=== PATIENT | female | born 1995 | race Caucasian/White ===

== ENCOUNTER 2020-09-27 13:19 | Emergency (ER) | payer OTHER ==
[~2020-09-27] VITALS: Ht 167.6 cm; Wt 78.3 kg
[2020-09-27 13:35] VITALS: BP 151/105
[2020-09-27 14:55] LABS: HCG UR SG 1.015 (1.003-1.030)
--- NOTE | 2020-09-27 17:15 | NUR ---
Pt here with foul smell from vagina. States she has had BV in the past and thought that was the problem. She tried boric acid with no relief. She then thought maybe her IUD had migrated or she left a tampon in. PT here from [place]. Alert oriented, denies fever or chills. Otherwise healthy.
--- NOTE | 2020-09-27 17:21 | NUR ---
called lab to use hcg urine sample for ua.
[2020-09-27 17:36] LABS: MICROSCOPIC NOT IND
[2020-09-27 18:25] LABS: CLUE CELLS NONE SEEN (NONE SEEN); WET PREP WBCS FEW (FEW)
[2020-09-27] MEDS ORDERED: CEFTRIAXONE 1,000 MG IM ONE (18:30)
[2020-09-27] MEDS ORDERED: CEFTRIAXONE 1,000 MG ONE (18:40)
== END 2020-09-27 19:33 | disposition home or self-care (01) ==
LOC: ED 18:34
DX: N89.8 Other specified noninflammatory disorders of vagina (principal); R82.998 Other abnormal findings in urine
CPT/HCPCS: 76830; 81003; 81025; 87210; 87491; 87591; 87808; 96372; 99284; J0696